=== PATIENT | male | born 1980 | race African-American/Black ===

== ENCOUNTER 2016-06-08 05:00 | Observation (INO) | payer OTHER ==
--- NOTE | ~2016-06-08 | DS ---
Unit #: [id number] #: [id number] Patient: VADIM CRENSHAW [id number] [address] [address] [id number] [place] MR#: [id number] NAME: VADIM CRENSHAW ROOM: 25503 Age: 36 Sex: M Admission Date: 06/08/2016 : 1980 Discharge Date: 06/08/2016 Attending Physician: Katia Bolivar M.D. Primary Care Physician: No Primary Care Physician DISCHARGE SUMMARY PRINCIPAL DIAGNOSES 1. Mild chronic rhabdomyolysis. 2. Hypertension, controlled. 3. Hypokalemia. 4. Chronic alcohol abuse. 5. Muscular dystrophy. 6. Peripheral neuropathy secondary to lumbar degenerative disc disease with associated spinal stenosis. 7. Tobaccoism. 8. Chronic immobility. CONSULTANTS None. PROCEDURES Chest x-ray which was unremarkable. CLINICAL HISTORY AND HOSPITAL COURSE Mr. Crenshaw is a 36-year-old -Honduran male admitted due to mild rhabdomyolysis and uncontrolled hypertension. Please refer to H and P for further details. Patient was monitored for several hours in the hospital and blood pressure improved. Systolics are now running anywhere from 130 to 150 systolic with diastolics in the 90s. I have written him medications as outlined below and I think this can be followed up as an outpatient. Patient was maintained on IV fluids for his mild rhabdomyolysis. However, this rhabdomyolysis is chronic secondary to his muscular dystrophy. I have encouraged him to push fluids. Patient was seen by Social Work given his greatest complaint was poor and or lack of housing. Patient was seen on several occasions by Social Work and ultimately the determination has been that he can try to stay with family tonight and then return to a [facility] bed tomorrow. Patient wanted more permanent housing but unfortunately he either could not be placed in several facilities and/or left AMA from others. DISCHARGE CONDITION Stable. DISCHARGE STATUS Discharge to home. Unit #: [id number] #: [id number] Patient: VADIM CRENSHAW DISCHARGE MEDICATIONS 1. Neurontin 600 mg p.o. t.i.d. 2. Norvasc 10 mg daily. 3. Zestril 20 mg daily. DISCHARGE INSTRUCTIONS 1. Patient was instructed to follow a heart healthy diet. 2. He can increase activity as tolerated within his Limitations of his muscular dystrophy, he otherwise uses a wheelchair. FOLLOWUP Patient can follow up with primary care physician and/or ER. Dictated by... Katia Bolivar M.D. COBY/constanza TD: 06/10/2016 17:13 JOB #: [id number] DISCHARGE SUMMARY Page 1 of 1 X Katia Bolivar MD X DISCHARGE SUMMARY
--- NOTE | ~2016-06-08 | CR72 ---
[facility] A Service of [facility] RADIOLOGY TEXT RESULTS PATIENT: VADIM CRENSHAW LOCATION: [facility] [id number] : [birth year] UNIT #: [id number] AGE: [address]: Katia Bolivar MD SEX: M ORDER DR: [id number] [facility] [address] [place], [place] [address] [id number] I MR#: [id number] Acc #: [id number] NAME: VADIM CRENSHAW : 1980 SEX: M STUDY DATE/TIME: 06/08/2016 6:00 UNIT: [facility] ROOM: 04348 STUDY DESCRIPTION: CR Chest Single View Portable Attending Physician: Katia Bolivar M.D. Ordering Physician: Andi Coates M.D. Primary Care Physician: Primary Care Physician No MEDICAL IMAGING REPORT This report is preliminary unless electronic signature is present EXAM Portable AP view of the chest COMPARISON March 05, 2016 and December 26, 2015. INDICATION 36-year-old male with generalized weakness, chest pain and dyspnea today. FINDINGS Lung volumes are significantly diminished from comparison study with crowding of central bronchovascular structures. No evidence of pneumothorax, pleural effusion or acute airspace disease. There are degenerative changes at both acromioclavicular joints, right greater than left. Cardiomediastinal silhouette is normal. IMPRESSION No acute abnormality. Low lung volumes with crowding of central bronchovascular structures. Dictated by... Dav Raines M.D. THIS IS AN ELECTRONICALLY VERIFIED REPORT Dav Raines M.D. at 06/10/2016 10:01 PM Celia TD: 06/08/2016 08:17 JOB #: [id number] MEDICAL IMAGING REPORT Page 1 of 1 COPY
--- NOTE | ~2016-06-08 | HP ---
Unit #: [id number] #: [id number] Patient: VADIM CRENSHAW [id number] [address] [address] [id number] I MR#: [id number] NAME: VADIM CRENSHAW ROOM: 45735 Age: 36 Sex: M Admission Date: 06/08/2016 : 1980 Attending Physician: Katia Bolivar M.D. Primary Care Physician: No Primary Care Physician HISTORY AND PHYSICAL PRIMARY CARE PROVIDER None. CHIEF COMPLAINT Weakness, foot pain. HISTORY OF PRESENT ILLNESS Mr. Crenshaw is a 36-year-old -[place] male with a history of congenital muscular dystrophy unknown type, who presents to the ER for above. Patient states he has had progressive bilateral lower leg weakness and increasing both right and left heel pain for the last six to seven months. He is also complaining of swelling of his legs. He denies any significant shortness of breath. He denies any orthopnea. He states he is having difficulty getting around at home but denies having any falls. I am told he uses a motorized wheelchair at baseline, though patient denies this. In the emergency department, the patient was found to have an elevated blood pressure upon presentation of 185/117. The patient is supposed to be taking antihypertensives but is not taking medications. Patient also had a history of alcohol abuse with prior withdrawal and states his last drink was a day prior to presentation. In the emergency department, he was found to have an elevated CK level of 2500. He is also mildly hypokalemic. He has been referred for observation. PAST MEDICAL HISTORY 1. Muscular dystrophy, patient cannot tell me what type. 2. Chronic alcohol abuse with history of withdrawal. 3. Lumbar degenerative disk disease. MRI in March 2015 revealed multi-level degenerative disk changes with lumbar canal stenosis most severe at L4 and L5. 4. Hypertension. 5. Tobaccoism. 6. Chronic immobility. 7. Medical noncompliance. 8. Homelessness. PAST SURGICAL HISTORY Negative. FAMILY HISTORY Reportedly negative. HOME MEDICATIONS Reportedly none. Upon discharge at last hospitalization, the patient was on: Unit #: [id number] #: [id number] Patient: VADIM CRENSHAW 1. Norvasc 10 mg daily. 2. Lyrica 75 mg daily. 3. Thiamine 100 mg daily. 4. Daily multivitamin. 5. Vitamin B12 at 1000 mcg p.o. daily. 6. Hydralazine 50 mg b.i.d. 7. Metoprolol 25 mg b.i.d. in addition to hydrochlorothiazide 25 mg daily. SOCIAL HISTORY The patient is homeless. He states he has been homeless for approximately four years but intermittently does live with family. He does not quantify how much he drinks but again says last drink was yesterday. He does smoke approximately a pack per day. REVIEW OF SYSTEMS The patient denies any chest pain, shortness of breath, orthopnea, constipation, diarrhea, melena, hematochezia. He does complain of a burning sensation in his legs bilaterally, primarily in his left heel and new swelling of his lower extremities. Again, denies any falls. Otherwise, 10-point review of systems was reviewed and is negative. PHYSICAL EXAMINATION VITAL SIGNS: Temperature 98.2, blood pressure now 158/100, pulse rate 97, respiratory rate 18, oxygen saturation 96% on room air. GENERAL: The patient is currently sleeping but is arousable. He is alert and oriented x3 and does answer questions; however, he will nod off sometimes during exam. HEENT: Pupils equally round and reactive to light bilaterally. Anicteric sclerae. No conjunctival pallor. Oropharynx with moist mucous membranes. No erythema or exudate. He has several missing teeth. NECK: Supple. No lymphadenopathy. No thyromegaly. No JVD. HEART: Regular rate and rhythm without murmur, rub, or gallop. LUNGS: Mildly diminished bilaterally but otherwise clear without wheezes, rhonchi, or crackles. ABDOMEN: Soft, nontender, nondistended. Positive bowel sounds. No appreciable hepatosplenomegaly. EXTREMITIES: No cyanosis, clubbing. Two to 3+ nonpitting edema. Pedal pulse is difficult to palpate but appears to be 2/4. SKIN: Reveals significant excess epithelium on the lower extremities. There is a large approximately 2.5 inch diameter scab present over the left proximal qiu. He also has denuded skin on the right posterior distal calf and on the right heel. NEUROLOGIC: Cranial nerves II-XII intact. Sensation is intact in all four extremities and perhaps hypersensitive in the lower extremities. Strength is 5/5 in upper extremities bilaterally. Gait, however, was not assessed. Deep tendon reflexes grossly appeared normal. PSYCHIATRIC: Again, alert and oriented x3. No suicidal or homicidal ideation. MUSCULOSKELETAL: No significant joint abnormalities noted. DIAGNOSTIC STUDIES LABORATORY: Lab work done in the emergency department reveals a white blood cell count of 4.1, hemoglobin 12.7, platelet count 150,000, MCV 74. Sodium 134, potassium 3.2, chloride 99, bicarbonate 27, BUN 5, creatinine less than 0.3, glucose 102. Albumin is 3.4. AST elevated at 100, ALT elevated at 71. Urine drug screen is positive for marijuana. CK is elevated at 2518. Urinalysis reveals trace leukocyte esterase, 3+ Unit #: [id number] #: [id number] Patient: VADIM CRENSHAW protein, 5-10 RBCs. IMAGING: Chest x-ray does not have any acute findings. CARDIOVASCULAR: EKG done in the emergency department reveals normal sinus rhythm. ASSESSMENT 1. Rhabdomyolysis, likely acute on chronic. 2. Hypertension, controlled. 3. Hypokalemia. 4. Transaminitis, likely secondary to combination of chronic alcohol use and rhabdomyolysis. 5. Chronic alcohol use with history of alcohol withdrawal. 6. Microcytosis. 7. Lower extremity edema. 8. Muscular dystrophy, unknown type. 9. Degenerative disk disease of lumbar spine with associated nerve compression. 10. Chronic immobility. 11. Mild protein malnutrition. PLAN 1. Will place patient in observation. 2. I am going to place patient on IV fluids just for 1 L. This rhabdomyolysis is chronic secondary to his muscular dystrophy. 3. Will place patient on Norvasc 10 mg daily in addition to lisinopril 20 mg daily and followup blood pressures. 4. Will replace potassium and check magnesium off blood in lab. 5. Will followup transaminitis in the morning. I am going to check a viral hepatitis panel as well. 6. Will place on CIWA, Ativan only, for alcohol withdrawal. He has no symptoms of withdrawal currently. 7. Will check iron levels in regard to microcytosis. I will note review of records indicates normal iron levels in 2016 and patient may have an underlying thalassemia. 8. Will check BNP in regard to lower extremity edema. I highly doubt deep venous thrombosis given it is bilateral. Will obtain echo if BNP is abnormal. 9. Have physical therapy/occupational therapy evaluation and treat. 10. Lovenox for deep venous thrombosis prophylaxis. 11. Will have social work see the patient regarding housing given this honestly appears to be his biggest issue. Dictated by Katia Bolivar M.D. COBY/pam TD: 06/08/2016 09:25 JOB #: [id number] Unit #: [id number] #: [id number] Patient: VADIM CRENSHAW HISTORY AND PHYSICAL Page 1 of 1 X Katia Bolivar MD X HISTORY AND PHYSICAL
--- NOTE | ~2016-06-08 | EKG ---
PATIENT: VADIM CRENSHAW UNIT #: [id number] Ventricular Rate: 94 BPM Atrial Rate: 94 BPM P-R Interval: 148 ms QRS Duration: 90 ms Q-T Interval: 378 ms QTC Calculation(Bezet): 472 ms P Franklin: 66 degrees Calculated R Franklin: -9 degrees Calculated T Franklin: 34 degrees Diagnosis Line: Normal sinus rhythm Diagnosis Line: Normal ECG Diagnosis Line: No previous ECGs available Diagnosis Line: Confirmed by MERCEDES SINGH MD ([id number]) on 06/08/2016 Diagnosis Line: 7:20:27 PM INTERPRETING MD: FRANCISCO ZHOU
[2016-06-08 04:52] LABS: URINE SOURCE CLEAN CATCH
[2016-06-08 04:55] LABS: EOSINOPHIL# 0.1 X10e3 (0-0.7); EOSINOPHIL% 1.9 % (0.0-7.0); HEMATOCRIT 39.9 % (38.0-50.0); HEMOGLOBIN 12.7 gm/dL (13.0-16.0); LYMPHOCYTE# 1.3 X10e3 (1.0-3.5); LYMPHOCYTE% 32.8 % (17.0-45.0); MEAN CELL VOLUME 74.5 FL (83-96); MEAN CORPUSCULAR HEMOGLOBIN 23.7 PG (28-34); MEAN CORPUSCULAR HGB CONC 31.8 g/dL (30-36); MEAN PLATELET VOLUME 8.5 FL (6.5-11.5); MONOCYTE# 0.4 X10e3 (0-1.0); MONOCYTE% 9.9 % (3.0-12.0); NEUTROPHIL# 2.2 X10e3 (1.5-7.1); NEUTROPHIL% 54.4 % (40-75); PLATELET COUNT 150 X10e3 (140-420); RED BLOOD COUNT 5.35 X10e (3.90-5.60); RED CELL DISTRIBUTION WIDTH 18.6 % (11.0-15.5); WHITE BLOOD COUNT 4.1 X10e3 (4.0-10.5)
[2016-06-08 04:57] LABS: URINE APPEARANCE CLEAR; URINE BLOOD 2+ (NEG); URINE COLOR DK YELLOW; URINE GLUCOSE NEG (NEG); URINE KETONE TRACE (NEG); URINE LEUKOCYTE ESTERASE TRACE (NEG); URINE NITRATE NEG (NEG); URINE PH 5.5 (5-8); URINE PROTEIN 3+ (NEG); URINE SPECIFIC GRAVITY 1.026 (1.003-1.035)
[2016-06-08 04:59] LABS: DIFF IND NO
[2016-06-08 05:00] LABS: URINE BACTERIA AUWI NEG (NEGATIVE); URINE SQUAMOUS EPITHELIAL CELL OCC /[HPF]
[~2016-06-08 05:00] MED LIST: ALDACTAZIDE; ALDACTAZIDE 50/1 TAB PO; ANUSOL-HC SUPP25 M1 PR; CYANOCOBALAM1000 MCG PO; FIBERCON625 MG PO; FOLIC ACID1 MG PO; HYDRALAZINE HCL25 MG PO; HYDRALAZINE HCL50 MG PO; LEVAQUIN PO; LYRICA75 MG PO; METOPROLOL TAR25 MG PO; MULTIVITAM PO; NORVASC10 MG PO; ROBITUSSIN100 MG/51 PO; THIAMINE HCL100 M1 PO; VIBRAMYCIN100 M1 PO
[2016-06-08 05:01] LABS: POC - CKMB 49.9 ng/mL (0.0-7.9); POC - TROPONIN <0.05 ng/mL (<=0.05)
[2016-06-08 05:05] LABS: CULTURE INDICATED? NO; URINE BILIRUBIN NEG (NEG)
[2016-06-08 05:07] LABS: AMPHETAMINE NEG (NEG); BARBITURATES NEG (NEG); BENZODIAZEPINES NEG (NEG); COCAINE NEG (NEG); MARIJUANA POS (NEG); OPIATES NEG (NEG); TRICYCLIC ANTIDEPRESSANTS NEG (NEG); U METHADONE NEG (NEG)
[2016-06-08 05:09] LABS: U HYALINE CASTS AUWI 0-2 /[LPF]; URINE MUCUS PRESENT
[2016-06-08 05:37] LABS: ALBUMIN SERUM 3.4 g/dL (3.5-5.0); ALKALINE PHOSPHATASE 84 U/L (32-92); ALT (SGPT) 71 U/L (10-40); AST (SGOT) 100 U/L (10-42); BILIRUBIN, DIRECT 0.1 mg/dL (0.0-0.2); BILIRUBIN,INDIRECT 0.4 mg/dL (0.0-0.9); BILIRUBIN,TOTAL 0.5 mg/dL (0.2-2.0); BLOOD UREA NITROGEN 5 mg/dL (9-23); CALCIUM SERUM 8.4 mg/dL (8.4-10.2); CARBON DIOXIDE 27 mmol/L (22-31); CHLORIDE 99 mmol/L (100-111); CPK (CREATINE PHOSPHOKINASE) 2518 IU/L (36-174); GLUCOSE FASTING 102 mg/dL (70-110); POTASSIUM 3.2 mmol/L (3.5-5.1); PROTEIN TOTAL SERUM 6.8 g/dL (6.0-8.3); SODIUM 134 mmol/L (135-145)
[2016-06-08 05:42] LABS: ALCOHOL BLOOD <5 mg/dL ([, 0]); BUN/CREATININE RATIO 16.66; CREATININE SERUM <0.3 mg/dL (0.6-1.4); GLOM FILT RATE Estimated UNABLE TO CALCULATE mL/min (>60)
[2016-06-08 10:09] LABS: MAGNESIUM 1.8 mg/dL (1.6-3.0)
[2016-06-11 01:00] LABS: HA AB IGM (HEPPAN) Nonreactive (()); HB CORE AB IGM (HEPPAN) Nonreactive (Nonreactive); HB S AG (HEPPAN) Nonreactive (Nonreactive); HEP C AB (HEPPAN) Nonreactive (Nonreactive); HEP C AB SIGNAL TO CUTOFF 0.04 ratio (<1.00)
== END 2016-06-08 16:45 | disposition home or self-care (01) | DRG 558 ==
LOC: CED 05:00 → CEDOF 06:10
PROVIDERS: Emergency Medicine; Internal Medicine
DX: M62.82 Rhabdomyolysis (principal); I10 Essential (primary) hypertension; F19.10 Other psychoactive substance abuse, uncomplicated; R53.83 Other fatigue; F17.200 Nicotine dependence, unspecified, uncomplicated; Z79.899 Other long term (current) drug therapy
CPT/HCPCS: 36415; 71010; 80048; 80074; 80076; 80307; 81003; 82550; 82553; 82947; 83540; 83550; 83735; 83880; 84484; 85025; 93005; 96360; 99285; G0378; G0480; J1650; J1940

== ENCOUNTER 2016-06-25 23:59 | Emergency (ER) | payer OTHER ==
[2016-06-26 03:38] LABS: BASOPHIL% 0.3 % (0-2.5); EOSINOPHIL% 0.7 % (0.0-7.0); HEMATOCRIT 38.8 % (38.0-50.0); HEMOGLOBIN 12.3 gm/dL (13.0-16.0); LYMPHOCYTE# 1.2 X10e3 (1.0-3.5); MEAN CELL VOLUME 74.6 FL (83-96); MEAN CORPUSCULAR HEMOGLOBIN 23.7 PG (28-34); MEAN CORPUSCULAR HGB CONC 31.8 g/dL (30-36); MEAN PLATELET VOLUME 7.4 FL (6.5-11.5); MONOCYTE# 0.4 X10e3 (0-1.0); MONOCYTE% 7.7 % (3.0-12.0); NEUTROPHIL# 3.5 X10e3 (1.5-7.1); NEUTROPHIL% 68.3 % (40-75); PLATELET COUNT 172 X10e3 (140-420); RED CELL DISTRIBUTION WIDTH 18.6 % (11.0-15.5); WHITE BLOOD COUNT 5.2 X10e3 (4.0-10.5)
[2016-06-26 03:40] LABS: DIFF IND NO
[2016-06-26 04:00] LABS: CALCIUM SERUM 8.6 mg/dL (8.4-10.2); CARBON DIOXIDE 29 mmol/L (22-31); CHLORIDE 98 mmol/L (100-111); GLUCOSE FASTING 109 mg/dL (70-110); SODIUM 135 mmol/L (135-145)
[2016-06-26 04:01] LABS: BLOOD UREA NITROGEN <5 mg/dL (9-23); BUN/CREATININE RATIO 16.66; CREATININE SERUM <0.3 mg/dL (0.6-1.4); GLOM FILT RATE Estimated UNABLE TO CALCULATE mL/min (>60)
[2016-06-26 04:03] LABS: ALCOHOL BLOOD <5 mg/dL (0)
== END 2016-06-26 07:27 | disposition home or self-care (01) ==
LOC: CED 23:59
PROVIDERS: Emergency Medicine
DX: F10.10 Alcohol abuse, uncomplicated (principal); E87.6 Hypokalemia; I10 Essential (primary) hypertension; Z59.0 Homelessness; F17.200 Nicotine dependence, unspecified, uncomplicated; Z79.899 Other long term (current) drug therapy
CPT/HCPCS: 36415; 80048; 85025; 99283; G0480

== ENCOUNTER 2016-10-05 13:59 | Inpatient (IN) | payer OTHER ==
[~2016-10-05] VITALS: Ht 167.6 cm; Wt 77.1 kg
--- NOTE | ~2016-10-05 | CR151 ---
[facility] A Service of [place] [facility] RADIOLOGY TEXT RESULTS PATIENT: VADIM CRENSHAW LOCATION: [facility] 461-01 : [birth year] UNIT #: [id number] AGE: [address]: Lydia Russell MD SEX: M ORDER DR: [id number] [facility] [address]. [place], [place] [address] [id number] I MR#: [id number] Acc #: [id number] NAME: VADIM CRENSHAW : 1980 SEX: M STUDY DATE/TIME: 10/06/2016 8:27 UNIT: [facility] ROOM: [facility] STUDY DESCRIPTION: CR Hip Min 2 Views Rt Attending Physician: Lydia Russell M.D. Ordering Physician: Rhonda Wahl M.D. Primary Care Physician: No Primary Care Physician MEDICAL IMAGING REPORT This report is preliminary unless electronic signature is present EXAM Right hip, 10/06/16 HISTORY Right hip pain for 12 years which is getting worse. FINDINGS An AP view of the pelvis and lateral view of the right hip were obtained. The joint spaces are normal in both hips. The left hip has a bony protrusion projecting from the greater trochanter. This was present in 2013 and has not changed significantly. Back in 2013, there was a cleft visible through the bony material. It is difficult to tell if that is still present because the projection is slightly different. There is no fracture identified. Prominence of the superior margins of both acetabuli are unchanged from the prior study and are probably normal for the patient. IMPRESSION 1. Right hip does not show any significant degenerative change, and there is no change from 05/06/13. 2. The left hip has a 4 cm bony well corticated projection off of the greater trochanter region. This is probably due to old trauma. It was present in 2013, and has not changed significantly. Dictated by... Castro Castillo M.D. THIS IS AN ELECTRONICALLY VERIFIED REPORT Castro Castillo M.D. at 10/06/2016 10:51 AM SANIYA/andrés [facility] A Service of [facility] RADIOLOGY TEXT RESULTS PATIENT: VADIM CRENSHAW LOCATION: [place] [address] : [birth year] UNIT #: [id number] AGE: [address]: Lydia Russell MD SEX: M ORDER DR: TD: 10/06/2016 10:36 JOB #: [id number] MEDICAL IMAGING REPORT Page 1 of 1 COPY
--- NOTE | ~2016-10-05 | US85 ---
[facility] A Service [facility] RADIOLOGY TEXT RESULTS PATIENT: VADIM CRENSHAW LOCATION: [facility] 4603-04 : [birth year] UNIT #: [id number] AGE: [address]: Ameya Doctor NOT IN SYSTEM SEX: M ORDER DR: [id number] [facility] [address] [place], [place] [address] [id number] I MR#: [id number] Acc #: [id number] NAME: VADIM CRENSHAW : 1980 SEX: M STUDY DATE/TIME: 10/05/2016 15:54 UNIT: [facility] ROOM: [facility] STUDY DESCRIPTION: US LE Veins Unilat or Ltd Stdy Ordering Physician: Rhonda Wahl M.D. MEDICAL IMAGING REPORT This report is preliminary unless electronic signature is present EXAM Right leg vein Doppler 10/05 INDICATIONS Right lower extremity and foot pain, increasing in the last 3 days. Symptoms chronically for a few months. TECHNIQUE Venous ultrasound examination of the right lower extremity was performed using grayscale, spectral Doppler and color flow Doppler imaging. FINDINGS The examination is negative. There is no evidence of right lower extremity deep venous thrombus from the groin to the lower calf. Visualized greater saphenous vein is also patent. IMPRESSION Negative examination. No evidence of right lower extremity deep venous thrombosis. Dictated by... Kuldeep Montemayor Jr., M.D. THIS IS AN ELECTRONICALLY VERIFIED REPORT Kuldeep Montemayor Jr., M.D. at 10/05/2016 10:16 PM RLK/kathryn TD: 10/05/2016 21:49 JOB #: [id number] MEDICAL IMAGING REPORT [facility] A [facility] RADIOLOGY TEXT RESULTS PATIENT: VADIM CRENSHAW LOCATION: [facility] 4603-04 : [birth year] UNIT #: [id number] AGE: [address]: Ameya Doctor NOT IN SYSTEM SEX: M ORDER DR: Page 1 of 1 COPY
--- NOTE | ~2016-10-05 | HP ---
Unit #: [id number] #: [id number] Patient: VADIM CRENSHAW [id number] [address] [place], [place] [address] [id number] I MR#: [id number] NAME: VADIM CRENSHAW ROOM: 461 Age: Sex: M Admission Date: 10/05/2016 : 1980 Attending Physician: Lydia Russell M.D. Primary Care Physician: Primary Care Physician No HISTORY AND PHYSICAL CHIEF COMPLAINT Right foot problem HISTORY OF PRESENT ILLNESS The patient is a 36-year-old male with past medical history of alcohol abuse, muscular dystrophy, degenerative disk disease, hypertension, chronic immobility, who presented to the emergency department for evaluation of the above. The patient is a poor historian. He states that when he drinks, his "feet swell." He denies any trauma. He is typically in a wheelchair. He states that he noted maggots on his feet within the past couple of days. He denies any fever. No cough or cold symptoms. He states that he has been eating. He denies any vomiting or diarrhea. He is complaining of right hip pain. He is a daily drinker. His last drink was today. In the emergency department, initial temperature was 98.6, pulse 71, blood pressure 147/91. A right lower extremity venous Doppler was negative for a DVT. Laboratory notable for AST and ALT of 49 and 48 respectively. Alkaline phosphatase is 96. Alcohol level was 62. He was given Vancomycin in the emergency department. He is being admitted to [facility] for evaluation and further treatment. PAST MEDICAL HISTORY 1. Admission to [facility] June 08, 2016, for mild chronic rhabdomyolysis. 2. Muscular dystrophy, NOS. 3. Degenerative disk disease. 4. Hypertension. 5. Chronic immobility. PAST SURGICAL HISTORY Esophagogastroduodenoscopy. SOCIAL HISTORY The patient is homeless. He is a daily drinker. He states that he typically drinks six 24 ounce beers daily. His last drink was today. He also reports marijuana use. He is in a wheelchair. FAMILY HISTORY Is not known. ALLERGIES No known allergies. Unit #: [id number] #: [id number] Patient: VADIM CRENSHAW HOME MEDICATIONS None REVIEW OF SYSTEMS A complete review of systems is negative except as indicated in the HPI. DIAGNOSTIC STUDIES IMAGING: Right lower extremity venous Doppler is negative for DVT. LABORATORY: Complete blood count notable for a hemoglobin and hematocrit of 12.3 and 38.6 respectively, MCV is 75.4, RDW is 17.5, INR is 1. Comprehensive metabolic panel notable for AST and ALT of 49 and 48 respectively. Alkaline phosphatase 96. Alcohol level 62. PHYSICAL EXAMINATION VITAL SIGNS: Temperature 98.6, pulse 91, respirations 18, blood pressure 147/91. Oxygen saturation is 98% on room air. GENERAL: The patient is an male who is awake and alert in no acute distress. HEENT: The head is atraumatic. Mucous membranes are moist. NECK: Supple. Trachea is midline. CARDIOVASCULAR: Regular rate and rhythm. LUNGS: Clear to auscultation bilaterally with no increased work of breathing. ABDOMEN: Soft, nontender, with bowel sounds present in all four quadrants. EXTREMITIES: The lower extremities demonstrate pitting edema (right greater than left). He does have cracking of the skin involving the feet. NEUROLOGIC: The patient is awake, he is oriented to place. He is moving all extremities. PSYCHIATRIC: The patient demonstrates poor insight and judgment. SKIN: Demonstrates the previous described abnormalities. ASSESSMENT The patient is a 36-year-old male with: 1. Right foot cellulitis. The patient received Vancomycin in the emergency department. 2. Transaminitis. 3. Alcohol abuse with last drink today. Alcohol level is 62. 4. Right hip pain. 5. Muscular dystrophy, NOS. 6. Degenerative disk disease. 7. Hypertension. 8. Chronic immobility. 9. Tobacco abuse. 10. Homelessness. PLAN 1. Admit to Medical-Surgical. 2. Healthy heart diet if passes bedside swallow. 3. Multivitamins, thiamine and folic acid. 4. CIWA scoring with p.r.n. Ativan. 5. Social work consult regarding alcohol abuse and homelessness. 6. Blood culture x2. 7. Wound culture and sensitivity. 8. Vancomycin IV and Zosyn IV pending further workup. 9. Zofran p.r.n. 10. Right hip x-rays regarding hip pain. Unit #: [id number] #: [id number] Patient: VADIM CRENSHAW 11. Repeat labs in the morning. 12. Additional workup and consultants based on above. Dictated by Cheryl Navarro/maritza TD: 10/05/2016 20:09 JOB #: [id number] HISTORY AND PHYSICAL Page 1 of 1 X Oralia Culp MD HISTORY AND PHYSICAL
--- NOTE | ~2016-10-05 | DS ---
Unit #: [id number] #: [id number] Patient: VADIM CRENSHAW [id number] [address] [address] [id number] I MR#: [id number] NAME: VADIM CRENSHAW ROOM: 461 Age: 36 Sex: M Admission Date: 10/05/2016 : 1980 Discharge Date: Attending Physician: Lydia Russell M.D. Primary Care Physician: No Primary Care Physician DISCHARGE SUMMARY DISCHARGE DIAGNOSES 1. Right foot cellulitis. 2. Alcohol dependence with daily alcohol usage. No delirium tremens. 3. Transaminitis from alcohol abuse. 4. Right hip pain. X-ray negative. 5. History of muscular dystrophy. 6. Degenerative disk disease. 7. Hypertension, uncontrolled. 8. Chronic immobility. 9. Smoking. 10. Homelessness. 11. Bilateral foot neuropathy likely from alcohol abuse. 12. Hypokalemia. 13. Chronic leg edema from immobility. CONSULTATIONS None. PROCEDURES None. DIAGNOSTIC TESTING LAB DATA: WBC 5.2, hemoglobin 11.5, platelets 233. Sodium 136, potassium 3.7, creatinine 0.3. Vitamin B12 is 466. Blood cultures negative. IMAGING: Hip x-ray shows no significant changes. Ultrasound of the extremities negative for DVT. ALLERGIES None. DISCHARGE MEDICATIONS 1. Neurontin 100 p.o. b.i.d. 2. Urea 10% cream applied topically b.i.d. 3. Lisinopril 10 mg p.o. daily. 4. Multivitamin 1 tablet daily. 5. Folic acid 1 mg daily. 6. Thiamine 100 daily. 7. Keflex 500 p.o. t.i.d. for 4 more days. HOSPITALIZATION COURSE A 36 year old admitted because of leg swelling. Unit #: [id number] #: [id number] Patient: VADIM CRENSHAW Right foot cellulitis likely from not taking care of himself. He is homeless, mostly on the streets. The patient was given vancomycin and Zosyn. Culture is negative. The patient will be discharged on Keflex. Bilateral foot neuropathy likely from alcohol abuse. Neurontin has been started. He insisted that I need to give him medications. I gave prescription for Neurontin. Alcohol dependence with daily usage. The patient is not in delirium tremens. Advised to quit. Homeless situation. The patient was seen by social service assistant and adult protective caseworker. They gave necessary information for him. biomedical manager to help him with medications at discharge. DISCHARGE PLAN 1. Discharge home. 2. Follow with family physician in 1 to 2 weeks' time. Dictated by... Cheryl Knox TD: 10/09/2016 13:44 JOB #: [id number] DISCHARGE SUMMARY Page 1 of 1 X Lydia Russell MD X DISCHARGE SUMMARY
[2016-10-05 15:49] LABS: BASOPHIL# 0.1 X10e3 (0-0.3); BASOPHIL% 0.9 % (0-2.5); EOSINOPHIL# 0.2 X10e3 (0-0.7); EOSINOPHIL% 2.3 % (0.0-7.0); HEMATOCRIT 38.6 % (38.0-50.0); HEMOGLOBIN 12.3 gm/dL (13.0-16.0); LYMPHOCYTE# 2.9 X10e3 (1.0-3.5); LYMPHOCYTE% 42.8 % (17.0-45.0); MEAN CELL VOLUME 75.4 FL (83-96); MEAN CORPUSCULAR HEMOGLOBIN 23.9 PG (28-34); MEAN CORPUSCULAR HGB CONC 31.7 g/dL (30-36); MEAN PLATELET VOLUME 7.6 FL (6.5-11.5); MONOCYTE# 0.4 X10e3 (0-1.0); MONOCYTE% 5.7 % (3.0-12.0); NEUTROPHIL# 3.3 X10e3 (1.5-7.1); NEUTROPHIL% 48.3 % (40-75); PLATELET COUNT 382 X10e3 (140-420); RED BLOOD COUNT 5.12 X10e (3.90-5.60); RED CELL DISTRIBUTION WIDTH 17.5 % (11.0-15.5); WHITE BLOOD COUNT 6.9 X10e3 (4.0-10.5)
[2016-10-05 15:50] LABS: DIFF IND NO
[2016-10-05 16:01] LABS: PROTHROMBIN TIME (PATIENT) 10.5 SECONDS (10.0-11.7)
[2016-10-05 16:15] LABS: ALBUMIN SERUM 3.7 g/dL (3.5-5.0); ALCOHOL BLOOD 62 mg/dL (0); ALKALINE PHOSPHATASE 96 U/L (32-92); ALT (SGPT) 48 U/L (10-40); AST (SGOT) 49 U/L (10-42); BILIRUBIN, DIRECT <0.1 mg/dL (0.0-0.2); BILIRUBIN,INDIRECT 0.3 mg/dL (0.0-0.9); BILIRUBIN,TOTAL 0.4 mg/dL (0.2-2.0); BLOOD UREA NITROGEN 5 mg/dL (9-23); BUN/CREATININE RATIO 16.66; CALCIUM SERUM 8.7 mg/dL (8.4-10.2); CARBON DIOXIDE 22 mmol/L (22-31); CHLORIDE 101 mmol/L (100-111); CREATININE SERUM <0.3 mg/dL (0.6-1.4); GLOM FILT RATE Estimated UNABLE TO CALCULATE mL/min (>60); GLUCOSE FASTING 79 mg/dL (70-110); PROTEIN TOTAL SERUM 7.1 g/dL (6.0-8.3); SODIUM 135 mmol/L (135-145)
[2016-10-05] MEDS ORDERED: NO MEDICATIONS (18:55)
[2016-10-06 20:09] LABS: BASOPHIL# 0.1 X10e3 (0-0.3); BASOPHIL% 1.2 % (0-2.5); EOSINOPHIL# 0.3 X10e3 (0-0.7); EOSINOPHIL% 4.7 % (0.0-7.0); HEMATOCRIT 41.1 % (38.0-50.0); HEMOGLOBIN 13.1 gm/dL (13.0-16.0); LYMPHOCYTE# 1.8 X10e3 (1.0-3.5); LYMPHOCYTE% 33.2 % (17.0-45.0); MEAN CELL VOLUME 76.3 FL (83-96); MEAN CORPUSCULAR HEMOGLOBIN 24.3 PG (28-34); MEAN CORPUSCULAR HGB CONC 31.8 g/dL (30-36); MEAN PLATELET VOLUME 8.1 FL (6.5-11.5); MONOCYTE# 0.3 X10e3 (0-1.0); MONOCYTE% 5.6 % (3.0-12.0); NEUTROPHIL% 55.3 % (40-75); PLATELET COUNT 294 X10e3 (140-420); RED BLOOD COUNT 5.39 X10e (3.90-5.60); RED CELL DISTRIBUTION WIDTH 17.7 % (11.0-15.5); WHITE BLOOD COUNT 5.4 X10e3 (4.0-10.5)
[2016-10-06 20:15] LABS: DIFF IND NO
[2016-10-06 20:45] LABS: ALBUMIN SERUM 3.6 g/dL (3.5-5.0); ALKALINE PHOSPHATASE 113 U/L (32-92); ALT (SGPT) 47 U/L (10-40); AST (SGOT) 49 U/L (10-42); BILIRUBIN,TOTAL 0.2 mg/dL (0.2-2.0); BLOOD UREA NITROGEN 5 mg/dL (9-23); CALCIUM SERUM 9.2 mg/dL (8.4-10.2); CARBON DIOXIDE 28 mmol/L (22-31); CHLORIDE 103 mmol/L (100-111); GLUCOSE FASTING 100 mg/dL (70-110); POTASSIUM 4.5 mmol/L (3.5-5.1); PROTEIN TOTAL SERUM 7.1 g/dL (6.0-8.3); SODIUM 140 mmol/L (135-145)
[2016-10-06 20:46] LABS: BUN/CREATININE RATIO 16.66; CREATININE SERUM <0.3 mg/dL (0.6-1.4); GLOM FILT RATE Estimated UNABLE TO CALCULATE mL/min (>60)
[2016-10-07 04:59] LABS: HEMATOCRIT 37.3 % (38.0-50.0); HEMOGLOBIN 12.1 gm/dL (13.0-16.0); MEAN CELL VOLUME 74.8 FL (83-96); MEAN CORPUSCULAR HEMOGLOBIN 24.4 PG (28-34); MEAN CORPUSCULAR HGB CONC 32.6 g/dL (30-36); MEAN PLATELET VOLUME 8.1 FL (6.5-11.5); RED BLOOD COUNT 4.98 X10e (3.90-5.60); RED CELL DISTRIBUTION WIDTH 17.1 % (11.0-15.5)
[2016-10-07 06:58] LABS: ALKALINE PHOSPHATASE 87 U/L (32-92); ALT (SGPT) 41 U/L (10-40); AST (SGOT) 46 U/L (10-42); BILIRUBIN,TOTAL 0.5 mg/dL (0.2-2.0); CARBON DIOXIDE 26 mmol/L (22-31); CHLORIDE 103 mmol/L (100-111); GLUCOSE FASTING 98 mg/dL (70-110); POTASSIUM 3.6 mmol/L (3.5-5.1); PROTEIN TOTAL SERUM 5.9 g/dL (6.0-8.3); SODIUM 137 mmol/L (135-145)
[2016-10-07 06:59] LABS: BLOOD UREA NITROGEN <5 mg/dL (9-23); BUN/CREATININE RATIO 16.66; CREATININE SERUM <0.3 mg/dL (0.6-1.4); GLOM FILT RATE Estimated UNABLE TO CALCULATE mL/min (>60)
[2016-10-07 17:02] LABS: FOLATE (FOLIC ACID) >23.3 ng/mL (>5.8)
[2016-10-08 03:34] LABS: HEMATOCRIT 37.4 % (38.0-50.0); HEMOGLOBIN 11.7 gm/dL (13.0-16.0); MEAN CELL VOLUME 75.8 FL (83-96); MEAN CORPUSCULAR HEMOGLOBIN 23.8 PG (28-34); MEAN CORPUSCULAR HGB CONC 31.4 g/dL (30-36); MEAN PLATELET VOLUME 8.3 FL (6.5-11.5); RED BLOOD COUNT 4.93 X10e (3.90-5.60); RED CELL DISTRIBUTION WIDTH 17.2 % (11.0-15.5); WHITE BLOOD COUNT 4.8 X10e3 (4.0-10.5)
[2016-10-08 04:29] LABS: BLOOD UREA NITROGEN 6 mg/dL (9-23); CALCIUM SERUM 8.5 mg/dL (8.4-10.2); CARBON DIOXIDE 25 mmol/L (22-31); CHLORIDE 103 mmol/L (100-111); CREATININE SERUM <0.3 mg/dL (0.6-1.4); GLOM FILT RATE Estimated UNABLE TO CALCULATE mL/min (>60); GLUCOSE FASTING 86 mg/dL (70-110); POTASSIUM 3.7 mmol/L (3.5-5.1); SODIUM 136 mmol/L (135-145)
[2016-10-09 03:41] LABS: HEMATOCRIT 35.4 % (38.0-50.0); HEMOGLOBIN 11.5 gm/dL (13.0-16.0); MEAN CELL VOLUME 75.1 FL (83-96); MEAN CORPUSCULAR HEMOGLOBIN 24.3 PG (28-34); MEAN CORPUSCULAR HGB CONC 32.4 g/dL (30-36); MEAN PLATELET VOLUME 7.9 FL (6.5-11.5); RED BLOOD COUNT 4.72 X10e (3.90-5.60); RED CELL DISTRIBUTION WIDTH 17.5 % (11.0-15.5); WHITE BLOOD COUNT 5.2 X10e3 (4.0-10.5)
[2016-10-09] MEDS ORDERED: NEURONTIN100 MG PO (16:48)
[2016-10-09] MEDS ORDERED: LISINOPRIL10 MG PO (16:49)
[2016-10-09] MEDS ORDERED: MULTIVITAMINS1 EAC3 PO (16:49)
[2016-10-09] MEDS ORDERED: THIAMINE HCL100 M1 PO (16:50)
[2016-10-09] MEDS ORDERED: FOLIC ACID1 MG PO (16:50)
[2016-10-09] MEDS ORDERED: KEFLEX500 MG PO (16:52)
[2016-10-09] MEDS ORDERED: ATRAC-TAIN142 GM TOP (17:14)
== END 2016-10-09 20:39 | disposition home or self-care (01) | DRG 603 ==
LOC: CED 13:59 → C4C 19:25 → CED 21:44 → C4C 10-06 07:47
PROVIDERS: Emergency Medicine; Internal Medicine
DX: L03.115 Cellulitis of right lower limb (principal); G62.9 Polyneuropathy, unspecified; I10 Essential (primary) hypertension; F10.20 Alcohol dependence, uncomplicated; R74.0 Nonspecific elevation of levels of transaminase and lactic acid dehydrogenase [LDH]; M25.551 Pain in right hip; F17.210 Nicotine dependence, cigarettes, uncomplicated; E87.6 Hypokalemia; Z59.0 Homelessness
CPT/HCPCS: 36415; 73502; 80048; 80053; 80076; 80202; 82607; 82746; 85025; 85027; 85610; 87040; 93971; 97163; 99285; G0480; J0360; J2543; J3370

== ENCOUNTER 2016-11-10 19:39 | Inpatient (IN) | payer OTHER ==
[~2016-11-10] VITALS: Ht 167.6 cm; Wt 73.0 kg
--- NOTE | ~2016-11-10 | DS ---
Unit #: [id number] #: [id number] Patient: VADIM CRENSHAW [id number] [place], [place] [address] [id number] Flora MR#: [id number] NAME: VADIM CRENSHAW ROOM: [facility] Age: 36 Sex: M Admission Date: 11/10/2016 : 1980 Discharge Date: 11/13/2016 Attending Physician: Katia Bolivar M.D. Primary Care Physician: Primary Care Physician No DISCHARGE SUMMARY PRIMARY CARE PROVIDER None. PRINCIPAL DIAGNOSES 1. Right lower extremity cellulitis, recurrent. 2. Hypertension, controlled. 3. Medical noncompliance. 4. Muscular dystrophy with associated chronic immobility. 5. Chronic alcohol abuse without evidence of withdrawal. 6. Bilateral foot neuropathy. 7. Tobaccoism. 8. Chronic lower extremity edema. CONSULTANTS None. PROCEDURES 1. Right lower extremity venous Doppler, which is currently pending. 2. X-ray of right foot on 11/10/2016 with dorsal soft tissue swelling over the foot and soft tissue swelling of the lower leg with skin thickening. CLINICAL HISTORY AND HOSPITAL COURSE Mr. Crenshaw is a 36-year-old male, who presents to the ER for above. I will note, the patient was hospitalized at this facility in 10/2016 for cellulitis. The patient was discharged on Keflex. He informs me he did not take the antibiotic. In the emergency department, x-ray of the foot was done, it was unremarkable. The patient was afebrile and had no white blood cell count. He was admitted for further evaluation. The patient was placed on empiric vancomycin and Zosyn. His cellulitis today appears resolved. I am going to transition him to oral Bactrim. He does have some significant right lower extremity swelling and I am going to perform a right lower extremity venous Doppler prior to discharge to ensure there is no blood clot. I will note, this was done earlier in 10/2016 that was negative. The patient also has a history of hypertension, is not currently taking any medications. It is my understanding his medications were filled in 10/2016, but he did not take the medications with him when he was discharged. I am going to place him back on medications when he was discharged in June and will monitor blood pressure prior to discharge today. Unit #: [id number] #: [id number] Patient: VADIM CRENSHAW The patient has been seen by social work and unfortunately he does not have any options regarding housing due to prior behaviors. I have discussed this with the patient. I anticipate, the patient will be discharged home later today assuming venous Doppler is negative. DISCHARGE CONDITION Stable. DISCHARGE STATUS Discharged to home. DISCHARGE MEDICATIONS Diflucan 100 mg p.o. daily for another 5 days, Bactrim DS one tablet p.o. b.i.d. for 5 days, lisinopril 20 mg daily with one refill, Norvasc 10 mg p.o. daily with one refill. DISCHARGE INSTRUCTIONS The patient instructed to follow a regular diet. He can increase activity as tolerated to refrain from any further alcohol or tobacco use. FOLLOWUP We will try to arrange the patient to follow up in [facility]. Dictated by... Cheryl De Santiago/price TD: 11/15/2016 15:28 JOB #: [id number] DISCHARGE SUMMARY Page 1 of 1 X Katia Bolivar MD X DISCHARGE SUMMARY
--- NOTE | ~2016-11-10 | HP ---
Unit #: [id number] #: [id number] Patient: VADIM CRENSHAW [id number] [facility]. [place], [place] [address] [id number] I MR#: [id number] NAME: VADIM CRENSHAW ROOM: [facility] Age: 36 Sex: M Admission Date: 11/10/2016 : 1980 Attending Physician: Baldev Dawson M.D. Primary Care Physician: Primary Care Physician No HISTORY AND PHYSICAL CHIEF COMPLAINT Right foot infected pain and swelling, right ankle pain. DISCUSSION This is a 36-year-old gentleman, who has a past medical history significant for history of muscular dystrophy, degenerative joint disease, hypertension, chronic immobility, history of rhabdomyolysis in the past, bilateral foot neuropathy, tobacco and alcohol abuse, he is homeless. He was brought to the emergency room with chief complaint of right foot pain and swelling. He is complaining of also pain all over, has a skin rash all over with sloughing of the skin but denies chest pain, denies cough, fever, chills, or any other complaint. PAST MEDICAL HISTORY 1. History of admission to [facility] in June 2016 for rhabdomyolysis. 2. History of muscular dystrophy. 3. Degenerative joint disease. 4. Hypertension. 5. Chronic immobility. 6. Bilateral foot neuropathy. 7. Tobacco abuse. 8. Alcohol abuse. 9. Homeless. 10. Chronic leg edema secondary from immobility. PAST SURGICAL HISTORY History of EGD. SOCIAL HISTORY The patient is homeless. He is a daily drinker. He said he drinks 24 oz of beer on a daily basis, last drink was yesterday. He reports that he has history of marijuana abuse in the past. He smokes one pack daily. He is wheelchair bound. FAMILY HISTORY Not known. ALLERGIES No known drug allergies. HOME MEDICATIONS No home medications. He does not know and will call the pharmacy to find out. Unit #: [id number] #: [id number] Patient: VADIM CRENSHAW He said he use to take Neurontin but noted not taking for a while. REVIEW OF SYSTEMS Negative except as in history of present illness. PHYSICAL EXAMINATION GENERAL: Whssha-mvrcm-ftpn-old gentleman lying in the bed comfortably. He is alert, awake, not in any distress. VITAL SIGNS: His current vitals are the following, temperature is 98, heart rate 100, respiratory rate 20, and blood pressure 148/100. Oxygen 98% on room air. HEENT EXAMINATION: Head: Atraumatic. Mucous membranes moist. NECK: Supple. No jugular venous distention. HEART: S1 and S2, regular rate and rhythm. LUNGS: Clear to auscultation. ABDOMEN: Soft, nontender, and nondistended. EXTREMITIES: Positive edema in both legs, right is more than the left. There is a positive cracking of skin on both feet, right more than the left, also there is an edematous area positive on his left buttock, also, there is a sloughing of the skin all over. NEUROLOGIC: He is alert, awake x2, he is moving all extremities. DIAGNOSTIC STUDIES LABORATORY: Current laboratory workup is pending at the time of the dictation. ASSESSMENT/PLAN 1. Right foot cellulitis, will start the patient on Zosyn and vancomycin, follow up the labs, he is homeless, medical social consultant to evaluate. 2. Alcohol abuse on a daily basis, will place on CIWA protocol. 3. History of muscular dystrophy. 4. Hypertension. 5. Degenerative joint disease. 6. Chronic immobility. 7. History of bilateral foot neuropathy. 8. Homeless. 9. Chronic leg edema from the immobility. 10. DVT prophylaxis. 11. Will place the patient on Lovenox. Dictated by Cheryl Atkinson TD: 11/11/2016 15:01 JOB #: [id number] Unit #: [id number] #: [id number] Patient: VADIM CRENSHAW HISTORY AND PHYSICAL Page 1 of 1 X X HISTORY AND PHYSICAL
--- NOTE | ~2016-11-10 | CR127 ---
[facility] A Service of [facility] & [facility] RADIOLOGY TEXT RESULTS PATIENT: VADIM CRENSHAW LOCATION: [place] [id number] : [birth year] UNIT #: [id number] AGE: [address]: Baldev Dawson MD SEX: M ORDER DR: [id number] [facility] [address] [place], [place] [address] [id number] MR#: [id number] Acc #: [id number] NAME: VADIM CRENSHAW : 1980 SEX: M STUDY DATE/TIME: 11/10/2016 20:40 UNIT: [facility] ROOM: STUDY DESCRIPTION: CR Foot Complete Min 3 View Rt Attending Physician: Jv Chaidez M.D. Ordering Physician: Jv Chaidez M.D. Primary Care Physician: No Primary Care Physician MEDICAL IMAGING REPORT This report is preliminary unless electronic signature is present EXAM Right foot, 3 views; 11/10/2016, 2040 hours. CLINICAL HISTORY 36-year-old man with complaint of severe chronic foot swelling for 3 months with flaking of the skin. No reported injury. COMPARISON 08/19/2016 FINDINGS There is diffuse soft tissue swelling and skin thickening over the lower leg and dorsum of the foot. The bones appear diffusely osteopenic. Progressive from August 2016. There is no definite fracture or dislocation. Question of irregularity of the distal aspect of the proximal phalanx of the fifth toe is raised. There is an overlying skin fold which could be contributing to the lucency through this area. This appears more normal on the oblique view. Correlate with any symptoms in the fifth toe. IMPRESSION Persistent dorsal soft tissue swelling over the foot and soft tissue swelling of the lower leg with skin thickening suggesting chronicity. No definite fracture is seen. There is an unusual lucency over the distal aspect proximal phalanx of the fifth toe which could represent a fracture, however, there is a skin fold through this area. Correlate with any symptoms in the fifth toe. STAT * RESULT Dictated by... Sada Walker M.D. [facility]. [facility] A Service of [facility] RADIOLOGY TEXT RESULTS PATIENT: VADIM CRENSHAW LOCATION: [facility] [phone] : [birth year] UNIT #: [id number] AGE: [address]: Baldev Dawson MD SEX: M ORDER DR: THIS IS AN ELECTRONICALLY VERIFIED REPORT Sada Walker M.D. at 11/11/2016 6:59 PM HILARY/oliver TD: 11/10/2016 21:09 JOB #: [id number] MEDICAL IMAGING REPORT Page 1 of 1 COPY
--- NOTE | ~2016-11-10 | US85 ---
[facility] A Service of [facility] & [facility] RADIOLOGY TEXT RESULTS PATIENT: VADIM CRENSHAW LOCATION: [facility] [phone] : [birth year] UNIT #: [id number] AGE: [address]: Katia Bolivar MD SEX: M ORDER DR: [id number] [facility] [address] [place], [place] [address] [id number] I MR#: [id number] Acc #: [id number] NAME: VADIM CRENSHAW : 1980 SEX: M STUDY DATE/TIME: 11/12/2016 15:11 UNIT: [facility] ROOM: [facility] STUDY DESCRIPTION: LE Veins Unilat or Ltd Stdy Attending Physician: Katia Bolivar M.D. Ordering Physician: Katia Bolivar M.D. Primary Care Physician: No Primary Care Physician MEDICAL IMAGING REPORT This report is preliminary unless electronic signature is present EXAM Right lower extremity venous ultrasound HISTORY Right leg swelling for 3 months. No injury. TECHNIQUE Venous ultrasound examination of both lower extremities was performed using grayscale, spectral Doppler and color flow Doppler imaging. FINDINGS The examination is negative. There is no evidence of deep venous thrombus from the groin to the lower calf bilaterally. Visualized greater saphenous veins are also patent. IMPRESSION Negative examination. No evidence of lower extremity deep venous thrombosis. Dictated by... Michael Rocha M.D. THIS IS AN ELECTRONICALLY VERIFIED REPORT Michael Rocha M.D. at 11/13/2016 2:27 PM DIMITRIOS/whitney TD: 11/13/2016 11:57 JOB #: [id number] MEDICAL IMAGING REPORT Page 1 of 1 COPY
[~2016-11-10 19:39] MED LIST changes: +ATRAC-TAIN142 GM TOP; +KEFLEX500 MG PO; +LISINOPRIL10 MG PO; +MULTIVITAMINS1 EAC3 PO; +NEURONTIN100 MG PO; +NO MEDICATIONS
[2016-11-10 22:35] LABS: BASOPHIL# 0.1 X10e3 (0-0.3); BASOPHIL% 1.6 % (0-2.5); EOSINOPHIL# 0.1 X10e3 (0-0.7); EOSINOPHIL% 2.6 % (0.0-7.0); HEMATOCRIT 42.3 % (38.0-50.0); HEMOGLOBIN 13.6 gm/dL (13.0-16.0); LYMPHOCYTE# 2.3 X10e3 (1.0-3.5); LYMPHOCYTE% 44.3 % (17.0-45.0); MEAN CELL VOLUME 74.4 FL (83-96); MEAN CORPUSCULAR HEMOGLOBIN 23.9 PG (28-34); MEAN CORPUSCULAR HGB CONC 32.1 g/dL (30-36); MEAN PLATELET VOLUME 7.9 FL (6.5-11.5); MONOCYTE# 0.4 X10e3 (0-1.0); MONOCYTE% 7.7 % (3.0-12.0); NEUTROPHIL# 2.3 X10e3 (1.5-7.1); NEUTROPHIL% 43.8 % (40-75); PLATELET COUNT 440 X10e3 (140-420); RED BLOOD COUNT 5.68 X10e (3.90-5.60); RED CELL DISTRIBUTION WIDTH 18.1 % (11.0-15.5); WHITE BLOOD COUNT 5.3 X10e3 (4.0-10.5)
[2016-11-10 22:37] LABS: DIFF IND NO
[2016-11-10 23:00] LABS: ALBUMIN SERUM 3.5 g/dL (3.5-5.0); ALKALINE PHOSPHATASE 122 U/L (32-92); ALT (SGPT) 68 U/L (10-40); AST (SGOT) 71 U/L (10-42); BILIRUBIN, DIRECT 0.1 mg/dL (0.0-0.2); BILIRUBIN,INDIRECT 0.2 mg/dL (0.0-0.9); BILIRUBIN,TOTAL 0.3 mg/dL (0.2-2.0); CALCIUM SERUM 8.9 mg/dL (8.4-10.2); CARBON DIOXIDE 27 mmol/L (22-31); CHLORIDE 100 mmol/L (100-111); CREATININE SERUM 0.3 mg/dL (0.6-1.4); GLOM FILT RATE Estimated 196.6 mL/min (>60); GLUCOSE FASTING 95 mg/dL (70-110); PROTEIN TOTAL SERUM 7.4 g/dL (6.0-8.3); SODIUM 139 mmol/L (135-145)
[2016-11-10 23:01] LABS: BLOOD UREA NITROGEN <5 mg/dL (9-23); BUN/CREATININE RATIO 16.66
[2016-11-11 14:05] LABS: ALBUMIN SERUM 2.9 g/dL (3.5-5.0); BILIRUBIN,TOTAL 0.7 mg/dL (0.2-2.0); BUN/CREATININE RATIO 16.66; CALCIUM SERUM 8.6 mg/dL (8.4-10.2); CREATININE SERUM 0.3 mg/dL (0.6-1.4); GLOM FILT RATE Estimated 196.6 mL/min (>60); POTASSIUM 4.1 mmol/L (3.5-5.1); PROTEIN TOTAL SERUM 6.3 g/dL (6.0-8.3)
[2016-11-11 14:34] LABS: THYROID STIMULATING HORMONE 0.66 uIU/ml (0.34-5.60)
[2016-11-11 14:41] LABS: FREE THYROXIN (T4) 0.83 ng/dL (0.58-1.64)
[2016-11-11 14:42] LABS: URINE SOURCE CLEAN CATCH
[2016-11-11 15:05] LABS: URINE APPEARANCE CLEAR; URINE BILIRUBIN NEG (NEG); URINE BLOOD NEG (NEG); URINE COLOR YELLOW; URINE GLUCOSE NEG (NEG); URINE KETONE NEG (NEG); URINE LEUKOCYTE ESTERASE NEG (NEG); URINE NITRATE NEG (NEG); URINE PROTEIN NEG (NEG); URINE SPECIFIC GRAVITY 1.009 (1.003-1.035)
[2016-11-11 15:35] LABS: AMPHETAMINE NEG (NEG); BARBITURATES NEG (NEG); BENZODIAZEPINES NEG (NEG); COCAINE NEG (NEG); MARIJUANA POS (NEG); OPIATES NEG (NEG); TRICYCLIC ANTIDEPRESSANTS NEG (NEG); U METHADONE NEG (NEG)
[2016-11-12 03:55] LABS: BUN/CREATININE RATIO 16.66; CALCIUM SERUM 7.9 mg/dL (8.4-10.2); CREATININE SERUM 0.3 mg/dL (0.6-1.4); GLOM FILT RATE Estimated 196.6 mL/min (>60); POTASSIUM 3.6 mmol/L (3.5-5.1)
[2016-11-12 04:11] LABS: MEAN CELL VOLUME 75.5 FL (83-96); MEAN CORPUSCULAR HEMOGLOBIN 24.2 PG (28-34); MEAN CORPUSCULAR HGB CONC 32.1 g/dL (30-36); MEAN PLATELET VOLUME 7.7 FL (6.5-11.5); RED BLOOD COUNT 4.77 X10e (3.90-5.60); RED CELL DISTRIBUTION WIDTH 18.3 % (11.0-15.5); WHITE BLOOD COUNT 4.1 X10e3 (4.0-10.5)
[2016-11-12 04:13] LABS: HEMOGLOBIN 11.5 gm/dL (13.0-16.0)
[2016-11-12] MEDS ORDERED: LISINOPRIL20 MG PO (18:25)
[2016-11-12] MEDS ORDERED: BACTRIM DS TAB1 EACH PO (18:30)
[2016-11-12] MEDS ORDERED: AMLODIPINE BESY10 MG PO (18:31)
[2016-11-12] MEDS ORDERED: DIFLUCAN100 MG PO (18:33)
== END 2016-11-13 09:05 | disposition home or self-care (01) | DRG 603 ==
LOC: CED 19:39 → CEDOF 21:30 → CED 21:38 → CEDOF 11-11 06:14 → C4C 11-11 11:32
PROVIDERS: Emergency Medicine; Internal Medicine
DX: L03.115 Cellulitis of right lower limb (principal); G71.0 Muscular dystrophy; M19.90 Unspecified osteoarthritis, unspecified site; I10 Essential (primary) hypertension; G62.9 Polyneuropathy, unspecified; F10.10 Alcohol abuse, uncomplicated; F17.200 Nicotine dependence, unspecified, uncomplicated; Z59.0 Homelessness; R60.9 Edema, unspecified; Z91.19 Patient's noncompliance with other medical treatment and regimen
CPT/HCPCS: 36415; 73630; 80048; 80053; 80076; 80307; 81003; 83605; 84439; 84443; 85025; 85027; 85652; 86592; 87040; 93971; 96365; 96375; 99285; J1650; J2543; J3370; J3411; J7042